=== PATIENT | male | born 1975 | race Caucasian/White ===

== ENCOUNTER 2025-07-07 16:22 | Emergency (ER) | payer BC, SELFPAY ==
[2025-07-07] VITALS (32 sets, daily range): BP systolic 97–144; BP diastolic 59–92; PULSE 65–89; RESP 9–25; TEMP 36.7–37.1; O2SAT 95–100
--- NOTE | ~2025-07-07 | XR_ITS ---
XR chest 1V portable INDICATION:Chest pain . REFERENCE: None FINDINGS: A single AP of the chest demonstrates normal heart size. Left Port-A-Cath terminates at the atrial caval junction. Bilateral lower lobe infiltrates are noted. There is no evidence of pneumothorax or pleural effusion. IMPRESSION: Bilateral lower lobe infiltrate may represent pulmonary congestion. Reviewed, dictated and finalized at location S. NK PIT OPERATOR
--- NOTE | 2025-07-07 16:40 | ED_ITS ---
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 Patient denies any fever, chills, nausea, vomiting, back pain or abdominal pain or having similar symptoms. History of hyperlipidemia, hypothyroidism, smoking, family history of coronary artery disease Patient denies any is more activities today compared to his regular daily activities Related Data Allergies Allergy/AdvReac Type Severity Reaction Status Date / Time No Known Allergies Allergy Verified 07/07/25 16:37 Review of Systems 2 Review of Systems: All systems reviewed & are unremarkable except as noted in HPI and below Exam 2 Narrative: Normal adult exam Course Consultations Consultation #1: DR martinez, HOSPITALIST AT [facility] ACCEPTED PATIENT TRANSFER Date: 07/07/25 Time: 18:50 Vital Signs Vital signs: Vital Signs Temperature 36.7 C 07/07/25 16:30 Pulse Rate 83 07/07/25 16:30 Respiratory Rate 20 07/07/25 16:30 Blood Pressure 127/92 H 07/07/25 16:30 Pulse Oximetry 99 07/07/25 16:30 Oxygen Delivery Room Air 07/07/25 16:30 Temperature 37.1 C 07/07/25 19:15 Pulse Rate 70 07/07/25 19:16 Respiratory Rate 21 H 07/07/25 19:16 Blood Pressure 129/77 07/07/25 19:15 Pulse Oximetry 100 07/07/25 19:16 Oxygen Delivery Room Air 07/07/25 19:15 MDM - Chest Pain MDM Narrative Medical decision making narrative: Patient came to the ED with severe retrosternal chest pain radiating to left shoulder and left upper extremity started while unloading a truck. Pain was 9/10, received aspirin in the ambulance, on arrival to the ED pain is 0/10. Patient currently is asymptomatic. Vital signs showing blood pressure 127/92 otherwise within normal limit Physical examination positive for ejection systolic murmur Differential diagnosis acute coronary syndrome, chest wall pain, pneumothorax, pericarditis EKG on arrival showing normal sinus rhythm, inverted T-waves in inferior leads, septal infarction of indeterminate age Chest x-ray showed bilateral lower lobe infiltrate may represent pulmonary congestion Blood workup today includes CBC, CMP, troponin, pro BMP, lipase showed troponin 1.090 otherwise within normal limit Patient received aspirin and ambulance, Lopressor 25 mg p.o. once on arrival to the ED, heparin bolus and drip. Diagnosis N STEMI Transferred to [facility] discussed with Dr. Martinez Differential Diagnosis Differential diagnosis: Likely pneumothorax, stable angina, unstable angina pectoris, atypical chest pain, costochondritis, chest pain and other Lab Data Attestation: I reviewed the patient's lab results. 07/07/25 16:55 07/07/25 16:56 Labs: Lab Results 07/07/25 07/07/25 07/07/25 Range/Units 16:55 16:56 19:41 WBC 7.2 (4.8-10.8) K/mm3 RBC 4.22 L (4.70-6.10) M/mm3 Hgb 13.5 L (14.0-18.0) g/dL Hct 40.1 (40.0-54.0) % MCV 95.0 (78.0-102.0) fL MCH 32.0 H (27.0-31.0) pg MCHC 33.7 (32-36) g/dL RDW 14.4 (11.6-14.4) % Plt Count 179 (150-420) K/mm3 MPV 10.2 (8.7-11.0) fl Immature Gran % (Auto) 0.3 H (0.0-0.0) % Neut % (Auto) 50.3 (50.0-70.0) % Lymph % (Auto) 41.3 (18.0-42.0) % [place] % (Auto) 5.5 (2.0-11.0) % Eos % (Auto) 2.0 (1.0-6.0) % Baso % (Auto) 0.6 (0.0-1.0) % Lymph # (Auto) 2.95 (1.10-4.50) K/mm3 [place] # (Auto) 0.39 (0.10-0.90) K/mm3 Eos # (Auto) 0.14 (0.02-0.50) K/mm3 Baso # (Auto) 0.04 (0.00-0.10) K/mm3 Abs Immat Gran (auto) 0.02 H (0.00-0.00) K/mm3 Absolute Neuts (auto) 3.61 (1.70-7.20) K/mm3 Absolute Nucleated RBC 0.00 (0.00-0.00) K/mm3 Nucleated RBC % 0.0 (0-0.0) % PT 11.5 (9.50-12.1) Seconds INR 1.0 APTT 28.6 (23.9-30.70) Sec Sodium 142 (137-145) mmol/L Potassium 4.0 (3.4-5.0) mmol/L Chloride 109 H (98-107) mmol/L Carbon Dioxide 27 (22-30) mmol/L Anion Gap 6 (4-12) mmol/L BUN 17 (9-20) mg/dL Creatinine 1.16 (0.7-1.3) mg/dL Estim Creat Clear Calc 95 ml/min Estimated GFR > 60 (59 - ) Glucose 97 (65-110) mg/dL Calculated Osmolality 295 (285-295) mOsm/kg Calcium 8.8 (8.4-10.2) mg/dL Total Bilirubin 1.2 (0.2-1.3) mg/dL AST 42 (17-59) U/L ALT 35 (6-50) U/L Alkaline Phosphatase 98 (38-126) U/L Troponin I 1.090 H* 3.920 H* D (0.000-0.034) ng/mL Total Protein 7.0 (6.3-8.2) g/dL Albumin 4.4 (3.5-5.1) g/dL Lipase 38 (23-300) U/L Imaging Data Radiologist's impression: Impressions Chest X-Ray 07/07/25 17:11 IMPRESSION: Bilateral lower lobe infiltrate may represent pulmonary congestion. ECG Data EKG #1: Attestation: I personally reviewed and interpreted this ECG as follows: ECG completion date: 07/07/25 Prior ECG tracings: not available for review Interpretation: Normal sinus rhythm at 85 beats per minute, poor R-wave progression, septal myocardial infarction probably old, abnormal EKG, inverted T-waves in inferior leads EKG #2: Attestation: I personally reviewed and interpreted this ECG as follows: ECG completion date: 07/07/25 Prior ECG tracings: available for review Interpretation: Normal sinus rhythm at 68 beats per minute, septal myocardial infarction probably old, abnormal EKG, compared to early EKG today heart rate went down to 68 beats per minute. Critical Care Time Critical Care Time Critical Care Time: Yes Total Critical Care Time: 30 Discharge Plan Discharge Clinical Impression: Non-ST elevation ME (NSTEMI) Patient Disposition: Acute Care [facility] Condition: Stable Additional Instructions: TRANSFERRED TO [facility] Patient Language: Yoruba Follow-up/Referrals: UNKNOWN,DOCTOR [Non-Staff] Quality HEART score for chest pain patients History: moderately suspicious ECG: normal Age: > 45 and < 65 years Risk factors: > or = to 3 risk factors of atherosclerotic disease Troponin: < or = to 1x normal limit Heart score: 4
[2025-07-07 17:02] LABS: Hematocrit 40.1 % (40.0-54.0); Hemoglobin 13.5 g/dL (14.0-18.0); Immature Granulocyte Percent A 0.3 % (0.0-0.0); Lymphocytes Absolute Auto 2.95 K/mm3 (1.10-4.50); Mean Corpuscular HGB Conc 33.7 g/dL (32-36); Mean Corpuscular Hemoglobin 32.0 pg (27.0-31.0); Mean Corpuscular Volume 95.0 fL (78.0-102.0); Nucleated Red Blood Cells Absolute Auto 0.00 K/mm3 (0.00-0.00); Nucleated Red Blood Cells Perc 0.0 % (0-0.0); Platelet Count Result 179 K/mm3 (150-420); Red Blood Count 4.22 M/mm3 (4.70-6.10); White Blood Count 7.2 K/mm3 (4.8-10.8)
--- NOTE | 2025-07-07 17:09 | ECG_ITS ---
Test Date: 2025-07-07 16:25:05 Measurements Intervals [place] Rate: 85 P: 69 SC: 153 QRS: 85 QRSD: 96 T: -14 QT: 368 QTc: 438 Interpretive Statements SINUS RHYTHM SEPTAL MYOCARDIAL INFARCTION , PROBABLY OLD Electronically Signed On 07-07-2025 22:40:24 TRANSPORTATION DEPARTMENT HEAD by Wade Padron D.O
[2025-07-07 17:13] LABS: Alanine Aminotransferase 35 U/L (6-50); Albumin Level 4.4 g/dL (3.5-5.1); Alkaline Phosphatase 98 U/L (38-126); Anion Gap 6 mmol/L (4-12); Aspartate Amino Transferase 42 U/L (17-59); Blood Urea Nitrogen 17 mg/dL (9-20); Calcium 8.8 mg/dL (8.4-10.2); Carbon Dioxide 27 mmol/L (22-30); Chloride 109 mmol/L (98-107); Estimated CRCL calculation 95 ml/min; Estimated Glomerular Filt Rate > 60; Glucose 97 mg/dL (65-110); Lipase 38 U/L (23-300); Osmolality Calculated 295 mOsm/kg (285-295); Potassium 4.0 mmol/L (3.4-5.0); Sodium 142 mmol/L (137-145); Total Protein 7.0 g/dL (6.3-8.2)
[2025-07-07 17:15] LABS: INR 1.0; Partial Thromboplastin Time 28.6 Sec (23.9-30.70); Prothrombin Time 11.5 Seconds (9.50-12.1)
[2025-07-07 17:27] LABS: Troponin I 1.090 ng/mL (0.000-0.034)
--- OUTSIDE RECORDS SUMMARY | 2025-07-07 17:29 | XMS_ITS | Encounter Summary ---
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); Unspecified hypothyroidism Social History Tobacco Use Types Packs/Day Years Used Date Smoking Tobacco: Never Assessed Sex and Gender Information Value Date Recorded Sex Assigned at Not on file 

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
--- OUTSIDE RECORDS SUMMARY | 2025-07-07 17:29 | XMS_ITS | Clinical Summary ---
Author Organization [facility] Address [address] Dee: [place] [address] Care Team Providers Care Special Class Welder Name Role Phone Clay Vaughan DO Primary Care Provider Allergies No known active allergies Medications tiZANidine (ZANAFLEX) 2 mg TabletIndication s:Chronic bilateral low back pain with bilateral sciatica Take 1 Tablet (2 mg) by mouth every 8 hours. 30 Tablet 5 Active metFORMIN (GLUCOPHAGE XR) 500 mg Extended Release 24 hour tabletIndication s:Prediabetes Take 1 Tablet (500 mg) by mouth daily with breakfast. 100 Tablet 3 5 Active atorvastatin (LIPITOR) 80 mg tabletIndication s:Hyperlipidemia , mixed Take 1 Tablet (80 mg) by mouth daily. 100 Tablet 3 5 Active thyroid, pork, (ARMOUR THYROID) 90 mg tabletIndication s:Hypothyroidism , unspecified type Take 2 tablets by mouth once daily 200 Tablet 3 5 Active cholecalciferol 1,250 mcg (50,000 unit) CapsuleIndicatio ns:Vitamin D deficiency Take 1 Capsule (50,000 Units) by mouth every 7 days. 16 Capsule 5 Active cholecalciferol 1,250 mcg (50,000 unit) CapsuleIndicatio ns:Vitamin D deficiency TAKE 1 CAPSULE BY MOUTH EVERY 7 DAYS 16 Capsule 5 06/23/20 25 Discontinu ed(Reorder ) Active Problems Problem Noted Date Diagnosed Date Mild depression 12/07/2024 Severe obesity (BMI 35.0-39.9) with comorbidity 12/07/2024 Chronic midline low back pain without sciatica 0 09/24/2023 Erectile dysfunction 09/18/2023 PTSD (post-traumatic stress disorder) 09/18/2023 Tobacco abuse 09/18/2023 HTN (hypertension) 09/18/2023 GERD (gastroesophageal reflux disease) History of colon cancer 07/04/2020 Overview (12/23/2020): 2014, hemicolectomy followed by chemotherapy. at [facility]. Hypothyroidism 07/04/2020 Hyperlipidemia, mixed 11/10/2019 Encounters Date Type Department Care Team Description 06/23/2025 Refill [facility] [address] [place] [address] June Winters APRN Vitamin D deficiency 04/14/2025 Telephone [facility] [address] [place] [address] Clay Vaughan, DO CPAP Check 04/13/2025 External Device Data ST[facility] ABSTRACTION Provider, Abstract from Last 3 Months Immunizations Immunization Administration Dates Next Due PNEUMOVAX (PPSV23) pneumococ guille polysaccharide 23-valent Vaccine 06/01/2014 Family History Medical History Relation Name Comments Cancer Father Heart Disease Father CABG x 3 at ag e 68 No Known Problems Mother No Known Problems Sister Relation Name Status Comments Father Mother Alive Sister Alive Son 1 Alive Son 2 Alive Social History Tobacco Use Types Packs/Day Years Used Date Smoking Tobacco: Every Day Cigarettes 1 37.9 Started: 08/26/1987 Smokeless Tobacco: Former Tobacco Cessation:Ready to Q uit: No Alcohol Use Standard Drinks/Week Comments Yes 0 (1 standard drink = 0.6 oz pure alcohol) 1 coctail every couple of months Social Connections Answer Date Recorded In a typical week, how many times do you talk on the telephone with family, friends, or neighbors? More than three times a week 09/18/2023 How often do you get togethe r with friends or relatives? More than three times a week 09/18/2023 How often do you attend chur [employer] or mosque services? Never 09/18/2023 Do you belong to any clubs o r organizations such as moravian groups, unions, fraternal or athletic groups, or school groups? No 09/18/2023 How often do you attend meet ings of the clubs or organizations you belong to? Never 09/18/2023 Are you , , di vorced, , never , or living with a partner? 09/18/2023 Financial Resource Strain Answer Date R ecorded How hard is it for you to pa y for the very basics like food, housing, medical care, and heating? Not hard at all 09/18/2023 Food Insecurity Answer Date Recorded In the past 12 months, have you worried that your food would run out before you had money to buy more? Never true 09/18/2023 In the past 12 months, did y ou run out of food and didn't have money to buy more? Never true 09/18/2023 Transportation Needs Answer Date Record ed In the past 12 months, has l ack of transportation kept you from medical appointments or from getting medications? No 08/27 In the past 12 months, has l ack of transportation kept you from meetings, work, or from getting things needed for daily living? No 09/18/2023 Education Answer Date Recorded What is the highest level of school you have completed or the highest degree you have received? 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 Gender Identity Not on file Sexual Orientation Not on file Last Filed Vital Signs Vital Sign Reading Time Taken Comments Blood Pressure 132/80 12/07/2024 8:06 AM CDT Pulse 84 12/07/2024 8:06 AM CDT Temperature 36.1 C (96.9 F) 12/07/2024 8:06 AM CDT Respiratory Rate 16 06/29/2023 11:15 AM CDT Oxygen Saturation 99% 12/07/2024 8:06 AM CDT Inhaled Oxygen Concentration - - Weight 140.2 kg (309 lb) 12/08/2024 9:35 AM CDT Height 198.1 cm (6' 6) 12/08/2024 9:35 AM CDT Body Mass Index 35.71 12/08/2024 9:35 AM CDT Plan of Treatment Health Maintenance Due Date Last Done Comments DTAP/TDAP/TD VACCINES (1 - Tdap) 1993 HEPATITIS B VACCINES (1 of 3 - 19+ 3-dose series) 1993 Lung Cancer Screening 01/20/2024 ZOSTER VACCINE (1 of 2) 01/20/2024 INFLUENZA VACCINE (#1) 2025 09/18/2023 Pre-Diabetes and Diabetes Screening 12/08/202712/07 Preventative Visit- Commercial Completed 12/07/2024 , 09/18/2023 Procedures Procedure Name Priority Date/Time Associated Diagnosis Comments HEMOGLOBIN A1C Routine 12/07/2024 8:39 AM CDT Screening for diabetes mellitus from Last 3 Months or Most Recently Relevant to Health Maintenance Results * (ABNORMAL) HEMOGLOBIN A1C (12/07/2024 8:39 AM CDT) HEMOGLOBIN A1C 6.1(H) <5.7 % [facility] Comment: For someone without known diabetes, a hemoglobin A1c value between 5.7% and 6.4% is consistent with prediabetes and should be confirmed with a follow-up test. For someone with known diabetes, a value <7% indicates that their diabetes is well controlled. A1c targets should be individualized based on duration of diabetes, age, comorbid conditions, and other considerations. This assay result is consistent with an increased risk of diabetes. Currently, no consensus exists regarding use of hemoglobin A1c for diagnosis of diabetes for children. ESTIMATED AVERAGE GLUCOSE (MG/DL) 128 mg/dL [facility] ESTIMATED AVERAGE GLUCOSE (MMOL/L) 7.1 mmol/L [facility] Comment: Test Performed at: [facility] [id number] [employer] [id number] Nida Mcclain MD Blood 12/07/2024 8:39 AM CDT 12/07/2024 10:43 PM CDT us June Winters MAPPING ENGINEER CHEMISTRY ORDERABLES Final Result [facility] [phone] [facility] [employer] [id number] [id number] from Last 3 Months or Most Recently Relevant to Health Maintenance Insurance BC OUT OF STATE Care Teams Special Class Welder Relationship Specialty Start Date End Date Clay Vaughan DO [address] [place] [address] PCP - General Family Practice 09/18/23
--- OUTSIDE RECORDS SUMMARY | 2025-07-07 17:29 | XMS_ITS | Encounter Summary ---
Author Organization [facility] Address [address] [place] [address] Care Team Providers Care Glass Washer And Carrier Name Role Phone Rosanne Lozada MD, Kimo Werner Primary Care Provider +1- [phone] Encounter Details Date Type Department Care Team (Latest Contact Info) Description 10/12/1998 Outpatient Historical [facility] Family Medicine- [place] [address] [place] [phone] Christophe Hennessy MD NO ADDRESS ON FILE Pain in joint, shoulder region (Primary Dx) Social History Tobacco Use Types Packs/Day Years Used Date Smoking Tobacco: Never Assessed Sex and Gender Information Value Date Recorded Sex Assigned at Not on file 

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
--- OUTSIDE RECORDS SUMMARY | 2025-07-07 17:29 | XMS_ITS | Encounter Summary ---
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
--- OUTSIDE RECORDS SUMMARY | 2025-07-07 17:29 | XMS_ITS | Encounter Summary ---
Author Organization [employer] [facility] Address [address] [place] [address] Care Team Providers Care Information Delivery Analyst Name Role Phone Rosanne Lozada MD, Kimo Werner Primary Care Provider +1- [phone] Encounter Details Date Type Department Care Team (Latest Contact Info) Description 01/09/1999 Outpatient Historical [facility] Fidencio Arias MD [address] [place] [address] Pain in joint, shoulder region (Primary Dx) Social History Tobacco Use Types Packs/Day Years Used Date Smoking Tobacco: Never Assessed Sex and Gender Information Value Date Recorded Sex Assigned at Not on file 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
--- OUTSIDE RECORDS SUMMARY | 2025-07-07 17:29 | XMS_ITS | Clinical Summary ---
Author Organization [facility] Address [address] [place] [address] Care Team Providers Care Machine Stone Polisher Apprentice Name Role Phone Rosanne Lozada MD, Kimo Werner Primary Care Provider +1- [phone] Allergies No known active allergies Medications lovastatin (MEVACOR) 20 mg tablet Take 1 Tablet (20 mg) by mouth daily with supper. 30 Tablet 5 07/04/2020 Active thyroid, pork, (ARMOUR THYROID) 120 mg tablet Take 1 Tablet (120 mg) by mouth daily. 30 Tablet 6 01/09/2021 Active Active Problems Problem Noted Date Diagnosed Date History of colon cancer 07/04/2020 Overview (07/04/2020): 2014, hemicolectomy followed by chemotherapy. at [facility]. Hypothyroidism 07/04/2020 Hyperlipidemia, mixed 11/10/2019 Family History Medical History Relation Name Comments Cancer Father Heart Disease Father CABG x 3 at ag e 68 Healthy Mother Relation Name Status Comments Father Mother Alive Social History Tobacco Use Types Packs/Day Years Used Date Smoking Tobacco: Every Day Cigarettes Smokeless Tobacco: Former Tobacco Cessation:Ready to Q uit: No; Counseling Given: Yes Alcohol Use Standard Drinks/Week Comments Yes 0 (1 standard drink = 0.6 oz pur e alcohol) rare Sex and Gender Information Value Date Recorded Sex Assigned at Not on file Legal Sex Male 6:02 AM CEMENTER Gender Identity Not on file Sexual Orientation Not on file Last Filed Vital Signs Vital Sign Reading Time Taken Comments Blood Pressure 122/84 07/04/2020 7:49 AM CEMENTER Pulse 83 07/04/2020 7:49 AM CEMENTER Temperature 36.3 C (97.4 F) 07/04/2020 7:49 AM CEMENTER Respiratory Rate 14 07/04/2020 7:49 AM CEMENTER Oxygen Saturation 97% 07/04/2020 7:49 AM CEMENTER Inhaled Oxygen Concentration - - Weight 125 kg (275 lb 8 oz) 07/04/2020 7:[address] Height 193 cm (6' 4) 07/04/2020 7:49 AM CEMENTER Body Mass Index 33.53 07/04/2020 7:49 AM CEMENTER Plan of Treatment Health Maintenance Due Date Last Done Comments Pre-Diabetes and Diabetes Screening 1974 DTAP/TDAP/TD VACCINES (1 - Tdap) 1993 HEPATITIS B VACCINES (1 of 3 - 19+ 3-dose series) 12/25 ZOSTER VACCINE (1 of 2) 01/20/2024 INFLUENZA VACCINE (#1) 2025 Care Teams Machine Stone Polisher Apprentice Relationship Specialty Start Date End Date Kimo Lay Jr., MD PCP - General Family Practice 03/28/18
--- OUTSIDE RECORDS SUMMARY | 2025-07-07 17:29 | XMS_ITS | Encounter Summary ---
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); Unspecified hypothyroidism Social History Tobacco Use Types Packs/Day Years Used Date Smoking Tobacco: Never Assessed Sex and Gender Information Value Date Recorded Sex Assigned at Not on file 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
--- OUTSIDE RECORDS SUMMARY | 2025-07-07 17:29 | XMS_ITS | Encounter Summary ---
Author Organization [facility] Address [address] [place] [address] Care Team Providers Care Milk Driver Name Role Phone Rosanne Lozada MD, Kimo Werner Primary Care Provider [phone]- [phone] Encounter Details Date Type Department Care Team (Latest Contact Info) Description 11/14/1998 Outpatient Historical [facility] Fidencio Arias MD [address] [place] [address] Disorders of bursae and tendons in shoulder region, unspecified (Primary Dx) Social History Tobacco Use Types Packs/Day Years Used Date Smoking Tobacco: Never Assessed Sex and Gender Information Value Date Recorded Sex Assigned at Not on file 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
[2025-07-07] MEDS: METOPROLOL TARTRATE 25 MG TABLET PO (17:46)
[2025-07-07] MEDS: HEPARIN SOD/D5W 100 UNITS/ML 25,000 UNITS/250 ML BAG 10 UNITS IV CONT (17:55)
--- NOTE | 2025-07-07 19:05 | PC.NURSE ---
PT REPORT RECEIVED FROM PAMELA BECKER FOR CONTINUATION OF CARE ON HAND GRINDER.
--- NOTE | 2025-07-07 19:34 | PC.NURSE ---
PT CHECKED, DENIES CURRENT CP. VSS. IV INFUSING PER ORDER, SEE MAR. GIVEN SECOND PILLOW AND WARM BLANKET FOR COMFORT. UPDATE PROVIDED. CALL LIGHT WITHIN REACH.
[2025-07-07 20:10] LABS: Troponin I 3.920 ng/mL (0.000-0.034)
--- NOTE | 2025-07-07 20:11 | ECG_ITS ---
Test Date: 2025-07-07 20:15:19 Measurements Intervals [place] Rate: 68 P: 61 DE: 162 QRS: 77 QRSD: 92 T: -20 QT: 397 QTc: 424 Interpretive Statements SINUS RHYTHM SEPTAL MYOCARDIAL INFARCTION , PROBABLY OLD Electronically Signed On 07-07-2025 22:40:36 CAD DESIGN ENGINEER by Wade Padron D.O
--- NOTE | 2025-07-07 20:23 | PC.NURSE ---
ekg completed and pt update provided.
[2025-07-13 13:11] LABS: Bilirubin,Total 0.2 mg/dL (0.2-1.3)
== END 2025-07-07 22:20 | disposition short-term general hospital (02) ==
PROVIDERS: Emergency Provider Emergency Medicine; Referring Provider Family Medicine
DX: I21.4 Non-ST elevation (NSTEMI) myocardial infarction (principal); E78.5 Hyperlipidemia, unspecified; E03.9 Hypothyroidism, unspecified
CPT/HCPCS: 36415; 71045; 80053; 83690; 84484; 85025; 85610; 85730; 93005; 96365; 96366; 99291; A9270; J1644